=== PATIENT | female | born 1965 | race Caucasian/White ===

== ENCOUNTER 2024-07-22 09:32 | Day surgery (SDC) | payer MEDICARE, SELFPAY ==
[2024-07-16 16:44] VITALS: BMI 24.9
[2024-07-22] MEDS: LACTATED RINGERS 1000ML 1,000 ML 25 ML IV (10:05)
[2024-07-22 10:06] VITALS: BP 124/80; PULSE 107; RESP 18; TEMP 36.5; O2SAT 100
--- NOTE | 2024-07-22 10:14 | P.PNANES_ITS ---
[facility] Disclaimer: The information contained in this section may have been updated after the patient was seen, as this information can be updated by other users. Medical History History of breast cancer Surgical History History of partial hysterectomy H/O bilateral mastectomy Family History (Updated 07/16/24 @ 16:43 by Shonda Alcocer RN) Other No significant family history Social History Smoking Status: Never smoker alcohol intake: never substance use type: denies use current occupational status: employed Travel in the last 8 weeks: None [facility] Anesthesia Checklist Patient Identification Patient Identification: Arm Band, Family and Verbal (Name & ) Structural Data Admitted From: Home Planned Operative Procedure/s: Colonoscopy Consent for Planned Operative Procedure(s) Verified: Yes Verified Documents: Surgical Consent and History and Physical NPO Status Verified Time NPO: 08:30 Additional verifications Patient : No (Post-menopausal) Anesthesia Reactions: No Cardiovascular Assessment Heart Sounds: S1 & S2 Pulse Rhythm: Irregular Peripheral Edema: No Airway Assessment Mallampati Score:: Class II C-Spine Mobility Assessed: Yes (FROM demonstrated) TMJ Mobility Assessed: Yes Dentition: Dentures-good fit (Nothing loose per pt.) Neurological Assessment Level of Consciousness: Awake, Alert, Appropriate and Follows Commands Hx Seizures: No Numbness or tingling in extremities: No Anesthesia Plan Anesthesia Risk discussed: Yes Anesthesia Plan: Verified ASA Class: II Anesthesia Type: MAC
[2024-07-22 10:50] VITALS: O2SAT 100
--- NOTE | 2024-07-22 10:53 | EXP.HP ---
History of Present Illness *Admission Date: 07/22/24 *Reason for visit:: Personal history of adenomatous colon polyps *History of present illness: Mrs. Franklin is a 59-year-old female who is here for surveillance colonoscopy secondary to a personal history of adenomatous colon polyps. The examination is deemed medically necessary for surveillance colonoscopy. The patient has been seen, interviewed and examined prior to the procedure by both myself and the anesthesia provider. [facility] Disclaimer: The information contained in this section may have been updated after the patient was seen, as this information can be updated by other users. Medical History (Updated 07/22/24 @ 10:54 by Angel Garcia II, MD) History of breast cancer Surgical History History of partial hysterectomy H/O bilateral mastectomy Family History (Updated 07/16/24 @ 16:43 by Shonda Alcocer RN) Other No significant family history Social History (Updated 07/22/24 @ 10:15 by Lucero Flores CRNA) Smoking Status: Never smoker alcohol intake: never substance use type: denies use current occupational status: employed Travel in the last 8 weeks: None Review of Systems Review of Systems Review of systems (narrative): Negative *Cardiovascular Comments: Negative *Gastrointestinal Comments: Negative *Genitourinary Comments: Negative *Musculoskeletal Comments: Negative *Neurologic Comments: Negative Meds Home Medications and Allergies Home Medications ?Medication ?Instructions ?Recorded ?Confirmed ?Type No Known Home Medications 07/16/24 07/16/24 History New Prescriptions to Start Prescriptions: Allergies Allergy/AdvReac Type Severity Reaction Status Date / Time No Known Allergies Allergy Verified 07/16/24 16:43 Exam Data for Last 24 hours Vital signs and Labs for Last 24 Hours: Temp Pulse Resp BP Pulse Ox O2 Del Method O2 Flow Rate 97.7 F 107 H 18 124/80 100 Nasal Cannula 5 07/22/24 10:06 07/22/24 10:06 07/22/24 10:06 07/22/24 10:06 07/22/24 10:06 07/22/24 10:50 07/22/24 10:50 *Routine HEENT Exam Head: Present normocephalic Eye: Present EOMI and PERRL ENT: Present mucous membranes moist *Routine Neck Exam Neck: Present supple *Routine Respiratory Exam Respiratory: Present CTA bilaterally *Routine Cardiovascular Exam Cardiovascular: Present RRR *Routine Abdominal Exam Abdominal: Present soft and normoactive bowel sounds; Absent tenderness *Routine Rectal Exam Rectal:: deferred *Routine Genitalia Exam Genitalia:: deferred *Routine Extremities Exam Extremities: Absent cyanosis, clubbing or edema *Routine Skin Exam Skin: Present warm; Absent rash *Routine Neurological Exam Neurological: Present alert and oriented X3 Assessment and Plan *Assessment and plan (1) Personal history of adenomatous and serrated colon polyps: Status: Acute Category: Medical Code(s): Z86.0101 - Personal history of adenomatous and serrated colon polyps Plan A/P: 1. Personal history of adenomatous colon polyps is the preprocedural diagnosis. Last colonoscopy 5 years ago with 4 polyps (tubular adenomas x 4) removed. The patient will be anesthetized/sedated using MAC sedation. The patient has been seen and examined. Cardiac and lung assessment prior to the examination is stable. Proceed with planned surveillance colonoscopy.
--- NOTE | 2024-07-22 10:54 | HMH.PROCNOTE ---
[facility] Procedure Note Date: 07/22/24 Time: 11:14 Procedure Note:: Colonoscopy Procedure Report: Colonoscopy with cold snare polypectomy Endoscopist: Angel Garcia II, MD Referring physician: Yoana Redding MD [address] [place] [id number] Date of Procedure: July 22, 2024 Equipment: Olympus 190 variable stiffness pediatric colonoscope Sedation: MAC sedation Indication: Mrs. Franklin is a 59-year-old female who is here for follow-up surveillance colonoscopy secondary to a personal history of adenomatous colon polyps. Her last colonoscopy was 5 years ago at which time 4 polyps (tubular adenomas x 4) were removed. She reports no abdominal pain, weight loss, change in her bowel habits or rectal bleeding. She reports no family history of colon cancer. Procedure: Prior to the procedure, a history and physical exam was performed, and patient's medications and allergies were reviewed. The risks, benefits and alternatives of the sedation and procedure were discussed with the patient. All questions were answered and informed consent was obtained. The patient was brought to the procedure room. Patient identification and proposed procedure were verified by the physician and the nurse. The patient was placed in a left lateral decubitus position and the scope was passed under direct vision. Throughout the procedure, the patient's blood pressure, pulse, and oxygen saturations were monitored continuously. The colonoscopy was accomplished without difficulty. The patient tolerated the procedure well. Findings: On digital rectal examination there was normal rectal tone. There were no external hemorrhoids. The colonoscope was introduced through the anal canal to the rectum and advanced to the cecum. The ileocecal valve and appendiceal orifice were identified. The scope was advanced a short distance into the ileum which appeared grossly normal. The scope was then withdrawn into the colon. There was a single 5 mm descending colon polyp removed via cold snare polypectomy. The remaining cecum, ascending, transverse, descending, sigmoid and rectum were grossly normal. There were no other mucosal abnormalities identified. Upon retroflexion within the rectum there were grade 1-2 internal hemorrhoids.The preparation was excellent throughout with [place] Preparation Score of 9. The cecal time was 12 minutes. Impression: 1. Descending colon polyp (5 mm) Plan: I will follow-up the polyp histology and recommend repeat surveillance colonoscopy again in 7 years. I will discuss the findings with the patient and family.
[2024-07-22 11:19] VITALS: BP 95/54; PULSE 94; RESP 16; TEMP 36.3; O2SAT 94
[2024-07-22 11:29] VITALS: BP 100/59; PULSE 92; RESP 18; O2SAT 93
[2024-07-22 11:39] VITALS: BP 107/57; PULSE 98; RESP 18; O2SAT 94
[2024-07-22 11:49] VITALS: BP 109/72; PULSE 99; RESP 20; O2SAT 94
== END 2024-07-22 11:49 | disposition home or self-care (01) ==
PROVIDERS: Visit Provider Internal Medicine Gastroenterology
PROC: (CPT 45385; principal; 2024-07-22 11:00)
DX: K63.5 Polyp of colon (principal); K64.8 Other hemorrhoids; Z09 Encounter for follow-up examination after completed treatment for conditions other than malignant neoplasm; Z86.0101 Personal history of adenomatous and serrated colon polyps
CPT/HCPCS: 45385; 88305; J7120